=== PATIENT | male | born 1950 | race Caucasian/White ===

== ENCOUNTER 2016-07-15 09:39 | Inpatient (IN) | payer OTHER ==
[2016-07-14 14:19] VITALS: BMI 27.5
[~2016-07-15] VITALS: Ht 165.1 cm; Wt 69.1 kg
[2016-07-15] VITALS (22 sets, daily range): BP systolic 107–173; BP diastolic 54–86; PULSE 68–104; RESP 9–23; Ht 165.1 cm; Wt 69.1 kg
[~2016-07-15 09:39] MED LIST: AMO500 PO; CIPR500T4 PO; IBUP-1542 PO; NYST15CR28 TOP; PHEN-538 PO; PHEN-616 PO
[2016-07-15] MEDS ORDERED: CEFTRIAXONE 1 GM/NS 50 ML IVPB ONE (10:30)
--- NOTE | 2016-07-15 11:54 | HPN ---
Date/Time of Note Date/Time of Note DATE: 07/15/16 TIME: 11:50 Interval H&P Admission Note Pt. seen H&P reviewed: No system changes MEGAN YOUNGER MD Jul 15, 2016 11:54
[2016-07-15] MEDS ORDERED: MIDAZOLAM 1 MG/ML 2 ML INJ ONE (12:24)
[2016-07-15] MEDS ORDERED: PROPOFOL 20 ML ONE (12:24)
[2016-07-15] MEDS ORDERED: LIDOCAINE 2% (SDV) 5 ML INJ ONE (12:24)
[2016-07-15] MEDS ORDERED: METOCLOPRAMIDE 10 MG INJ ONE (12:42)
[2016-07-15] MEDS ORDERED: FENTAnyl 50 MCG/ML VIAL ONE (12:42)
[2016-07-15] MEDS ORDERED: DEXAMETHASONE 4 MG/ML 1 ML INJ ONE (12:42)
[2016-07-15] MEDS ORDERED: ONDANSETRON 4 MG INJ ONE ×2 (12:42→15:21)
[2016-07-15] MEDS ORDERED: EPHEDrine SULFATE 50 MG/5 ML SYG ONE (12:44)
[2016-07-15] MEDS ORDERED: METHYLENE BLUE 1% 10 ML INJ ONE (13:34)
[2016-07-15] MEDS ORDERED: DEXTROSE 5%-0.45% NACL 1,000 ML IV SCH ×2 (15:10→15:13)
[2016-07-15] MEDS ORDERED: HYDROmorphONE (0.2 MG/ML) 10ML SYG IV ONE (15:21)
[2016-07-15] MEDS ORDERED: LABETALOL HCL 20MG INJ IV PRN (15:30)
[2016-07-15] MEDS ORDERED: PROCHLORPERAZINE 10 MG INJ IV PRN (15:30)
[2016-07-15] MEDS ORDERED: FENTAnyl 50 MCG/ML VIAL IV PRN (15:30)
[2016-07-15] MEDS ORDERED: hydrALAzine 20 MG INJ IV PRN (15:30)
[2016-07-15] MEDS ORDERED: HYDROmorphONE (0.2 MG/ML) 10ML SYG IV PRN (15:30)
[2016-07-15] MEDS ORDERED: OXYCODONE/ACETAMINOPHEN (5/325) TAB PO PRN (15:30)
[2016-07-15] MEDS ORDERED: MEPERIDINE 25 MG INJ IV PRN (15:30)
[2016-07-15] MEDS ORDERED: DIPHENHYDRAMINE 50 MG INJ IV PRN (15:30)
[2016-07-15] MEDS ORDERED: ONDANSETRON 4 MG INJ IV PRN ×2 (15:30→17:00)
--- NOTE | 2016-07-15 15:42 | OPR ---
DATE OF OPERATION: 07/15/2016 PREOPERATIVE DIAGNOSIS: Benign prostatic hypertrophy and urethral stricture. POSTOPERATIVE DIAGNOSIS: Benign prostatic hypertrophy and urethral stricture. PROCEDURE PERFORMED: Cystoscopy, internal urethrotomy under direct vision and transurethral resecti on of the prostate. SURGEON: Rohan Euceda MD TECHNIQUE: The patient was brought to the operating room. General anesthesia was induced. The pat ient was positioned in the lithotomy position. The genital area was prepped and draped in the usual sterile manner. Timeout was done. The patient was identified by his name, date, and the pro cedure. The patient received 1 gram of ceftriaxone IV at the start of the procedure. Once the arnol tai area was prepped and draped in the usual sterile manner, then the visual urethrotome was passed under direct vision into the urethra. The urethral stricture was cut at the 12 o'clock position and advanced the scope until I was able to get into the bladder. The prostate was very large and obstr ucting mostly at the apical tissue and there were adhesions between the 2 lobes of the prostate at t he apical area. The bladder itself was trabeculated, but there was no evidence of bladder tumor, ul cerations or stones. Once the cystoscopy was done, then I pulled out the visual urethrotome and then I did a regular cyst oscopy with a 21-Citizen Of [place] cystoscope sheath and the 30-degree lens to confirm the findings with the 30 -degree lens. Then, I did use the bipolar resectoscope and introduced it under direct vision, a #26 Citizen [place] was advanced under direct vision through the penile urethra all the way into the bladder. O nce in the bladder, then the ureteral orifices were identified and then the resection was started wi th the bipolar resectoscope. First, I resected the median area between the 5 and 7 o'clock position , then between 5 and 12 o'clock position and then between the 7 and 12 o'clock position. All the ap ical tissue had to be resected well. There was a lot of apical tissue. Once that was removed, hemo stasis was done and all the bleeders were electrocoagulated and good hemostasis was obtained. The u reteral orifices were intact as well as the external sphincter. Then, I removed the resectoscope and I tried a 24-Citizen Of [place] catheter, but that was a little tight, so I decided to go with a 22-Citizen [place]. I lubricated the urethra with 60 mL of K-Y jelly and then inserted the catheter and that went into the bladder without a problem. The balloon was inflated with 60 mL of sterile water. Then, I added another 30 mL at the end. I wanted to put some gentle traction on it. The catheter was irrigated and the return was clear at the end. The [place] catheter was connec geovani to a drainage bag and continuous bladder irrigation was started in the operating room. The willard ent was transferred to recovery room in stable and satisfactory condition. Estimated blood loss abo ut 400 mL. Dictated By: ROHAN PATRICIA/CARLIN Conf#: [id number] DID#: [id number]
[2016-07-15] MEDS ORDERED: HYDROmorphONE 1 MG/ML SYG IV PRN (17:00)
[2016-07-15] MEDS ORDERED: ZOLPIDEM 5 MG TAB PO PRN (17:00)
[2016-07-15] MEDS ORDERED: NACL 0.9% 3 ML SYG IV SCH (17:00)
[2016-07-15] MEDS ORDERED: HYDROCODONE/APAP (5/325) TAB PO PRN (17:00)
--- NOTE | 2016-07-15 17:36 | HP ---
DATE OF ADMISSION: 07/15/2016 CHIEF COMPLAINT: Urethral stricture. HISTORY OF PRESENT ILLNESS: The patient is a 65-year-old male with a history of BPH. The patient i s now status post cystoscopy with TURP. The patient is being admitted for irrigation and control af ter TURP surgery. The patient denies any medical history besides BPH, states that his pain is curre ntly controlled and he has no other complaints. PAST MEDICAL HISTORY: BPH post-TURP postop day 0. He also states that he has had another prostate surgery in the past. HOME MEDICATIONS: Denies except for prostate medications. ALLERGIES: NO KNOWN DRUG ALLERGIES. FAMILY HISTORY: Denies. SOCIAL HISTORY: Denies any alcohol, tobacco, or drug abuse. REVIEW OF SYSTEMS: A 12-point review of systems is negative except as in HPI. PHYSICAL EXAMINATION: VITAL SIGNS: Temperature is 97.6, pulse 95, respiratory rate 18, BP is 129/58, saturation 97% on 2 liters. GENERAL: No acute distress, alert and oriented. HEENT: Normocephalic, atraumatic. LUNGS: Clear to auscultation. CARDIOVASCULAR: Regular rate and rhythm. ABDOMEN: Nondistended, nontender, soft. EXTREMITIES: No clubbing, cyanosis, or edema. GENITOURINARY: [place] noted. LABORATORIES:: No labs are available at this time. DIAGNOSTICS: No diagnostics available at this time. ASSESSMENT AND PLAN: 1. Benign prostatic hypertrophy, status post transurethral resection of the prostate, postop day # 0. Management per urology, Dr. Euceda. Continue bladder irrigation at this time. Continue pain c ontrol. 2. Prophylaxis: Sequential compression devices. Dictated By: MJ GRIJALVA MD BS/NTS Conf#: [id number] DID#: [id number]
[2016-07-15] MEDS: CIPROFLOXACIN 500 MG TAB PO SCH (18:13)
[2016-07-15] MEDS: morphine 2 MG INJ IV PRN ×2 (18:42→23:24)
[2016-07-16 06:16] LABS: ADD SCAN DIFF NO
[2016-07-16 06:33] LABS: ABNORMAL IP MESSAGE 1; BASOPHILS % 0.2 % (0.0-2.0); EOSINOPHILS # 0.2 10^3/ul (0.0-0.5); EOSINOPHILS % 1.3 % (0.0-7.0); HEMATOCRIT 37.5 % (42.0-52.0); HEMOGLOBIN 12.3 g/dl (14.0-18.0); LYMPHOCYTES # 0.3 10^3/ul (0.8-2.9); LYMPHOCYTES % 2.8 % (15.0-51.0); MEAN CORPUSCULAR HEMOGLOBIN 27.3 pg (29.0-33.0); MEAN CORPUSCULAR HGB CONC 32.8 g/dl (32.0-37.0); MEAN CORPUSCULAR VOLUME 83.3 fl (82.0-101.0); MEAN PLATELET VOLUME 14.1 fl (7.4-10.4); MONOCYTE # 0.5 10^3/ul (0.3-0.9); NEUTROPHIL # 11.2 10^3/ul (1.6-7.5); NEUTROPHILS % 91.1 % (39.0-77.0); PLATELET COUNT 109 10^3/UL (140-415); RED CELL DISTRIBUTION WIDTH 13.8 % (11.5-14.5); WHITE BLOOD COUNT 12.3 10^3/ul (4.8-10.8)
[2016-07-16] MEDS: CIPROFLOXACIN 500 MG TAB PO SCH ×2 (06:51→17:15)
[2016-07-16 06:56] LABS: CHOL/HDL RATIO 3.6 RATIO; MAGNESIUM 1.6 mg/dl (1.7-2.5)
[2016-07-16 07:57] VITALS: BP 106/56; RESP 16
--- NOTE | 2016-07-16 08:41 | PN ---
DATE: 07/16/2016 SUBJECTIVE: The patient is post-transurethral resection of the prostate. He complains of nausea and mild pain. OBJECTIVE: VITAL SIGNS: His temperature is 97.5, pulse 97, respirations 18, blood pressure 117/62. ABDOMEN: Soft. The [place] catheter is draining clear urine with bladder irrigation, and there is no bleeding around it. LABORATORY DATA: His CBC shows a white count of 12.3, hemoglobin 12.3, hematocrit 37.5. PLAN: Stop the bladder irrigation and change his IV to a Hep-Lock and have him ambulate and drink a lot of water. Then if he is stable, he may go home tomorrow. Dictated By: MEGAN PATRICIA/CARLIN Conf#: [id number] DID#: [id number]
[2016-07-16] MEDS: morphine 2 MG INJ IV PRN (09:10)
[2016-07-16] MEDS: ACETAMINOPHEN 325 MG TAB PO PRN ×2 (14:14→21:14)
--- NOTE | 2016-07-16 16:13 | PN ---
Date/Time of Note Date/Time of Note DATE: 07/16/16 TIME: 16:12 Assessment/Plan VTE Prophylaxis VTE Prophylaxis Intervention: SCD's Lines/Catheters IV Catheter Type (from Nrsg): Peripheral IV Assessment/Plan Chief Complaint/Hosp Course 1. Benign prostatic hypertrophy, status post transurethral resection of the prostate, postop day #1 -pain control -Management per urology, Dr. Euceda 2. Prophylaxis: Sequential compression devices. Problems: Subjective 24 Hr Interval Summary Constitutional: no complaints Exam/Review of Systems Vital Signs Vitals Vital Signs Date Time Temp Pulse Resp B/P Pulse Ox O2 Delivery O2 Flow Rate FiO2 07/16/16 08:00 Nasal Cannula 2.0 07/16/16 07:57 98.4 89 16 106/56 95 Intake and Output 07/15/16 07/15/16 07/16/16 15:00 23:00 07:00 Intake Total 1400 ml 550 ml Output Total 9250 ml Balance -7850 ml 550 ml Exam Constitutional: alert, oriented Respiratory: clear to auscultation Cardiovascular: regular rate and rhythm Gastrointestinal: soft, No distended Musculoskeletal: nl extremities to inspection Results Result Diagram: 07/16/16 0545 Results 24 hrs Laboratory Tests Test 07/16/16 05:45 White Blood Count 12.3 H Red Blood Count 4.50 L Hemoglobin 12.3 L Hematocrit 37.5 L Mean Corpuscular Volume 83.3 Mean Corpuscular Hemoglobin 27.3 L Mean Corpuscular Hemoglobin Concent 32.8 Red Cell Distribution Width 13.8 Platelet Count 109 L Mean Platelet Volume 14.1 H Neutrophils % 91.1 H Lymphocytes % 2.8 L Monocytes % 4.0 Eosinophils % 1.3 Basophils % 0.2 Nucleated Red Blood Cells % 0.0 Neutrophils # 11.2 H Lymphocytes # 0.3 L Monocytes # 0.5 Eosinophils # 0.2 Basophils # 0.0 Nucleated Red Blood Cells # 0.0 Hemoglobin A1c 6.0 H Phosphorus Level 4.0 Magnesium Level 1.6 L Triglycerides Level 115 Cholesterol Level 129 LDL Cholesterol, Calculated 71 HDL Cholesterol 35 Cholesterol/HDL Ratio 3.6 Medications Medications Current Medications Ciprofloxacin (Cipro) 500 mg BID@06,18 PO Last administered on 07/16/16t 06:51 ; Admin Dose 500 MG; Start 07/15/16 at 18:00 Ondansetron HCl (Zofran Inj) 4 mg Q6H PRN IV NAUSEA AND/OR VOMITING Last administered on 07/16/16 09:10; Admin Dose 4 MG; Start 07/15/16 at 17:00 Acetaminophen (Tylenol Tab) 650 mg Q6H PRN PO PAIN LEVEL 1-3 OR FEVER Last administered on 07/16/16 14:14; Admin Dose 650 MG; Start 07/15/16 at 17:00 Acetaminophen/ Hydrocodone Bitart ([place] (5/325)) 1 tab Q6H PRN PO MODERATE PAIN LEVEL 4-6; Start 07/15/16 at 17:00 Morphine Sulfate (morphine) 2 mg Q4H PRN IV SEVERE PAIN LEVEL 7-10 Last administered on 07/16/16 09:10; Admin Dose 2 MG; Start 07/15/16 at 17:00 Docusate Sodium (Colace) 100 mg Q12H PRN PO CONSTIPATION; Start 07/15/16 at 17: 00 Zolpidem Tartrate (Ambien) 5 mg QHS PRN PO SLEEP; Start 07/15/16 at 17:00 Hydromorphone HCl (Dilaudid) 0.5 mg Q4H PRN IV BREAKTHROUGH PAIN; Start at 17:00 MJ GRIJALVA Jul 16, 2016 16:13
[2016-07-16] MEDS: DOCUSATE SODIUM 100 MG CAP PO PRN (17:15)
[2016-07-16] MEDS ORDERED: MAGNESIUM SULFATE 2 GM/50 ML 50 ML IVPB ONE (17:30)
[2016-07-16 18:00] LABS: POTASSIUM 3.8 mmol/L (3.5-5.1)
[2016-07-16 18:03] LABS: CALCIUM 8.2 mg/dl (8.4-10.2); CREATININE 0.86 mg/dl (0.61-1.24)
[2016-07-16 19:34] VITALS: BP 116/58; RESP 18
[2016-07-17 05:19] LABS: ADD SCAN DIFF NO
[2016-07-17 05:23] LABS: ABNORMAL IP MESSAGE 1; BASOPHILS % 0.1 % (0.0-2.0); EOSINOPHILS # 0.5 10^3/ul (0.0-0.5); EOSINOPHILS % 4.7 % (0.0-7.0); HEMATOCRIT 35.9 % (42.0-52.0); HEMOGLOBIN 11.7 g/dl (14.0-18.0); LYMPHOCYTES # 0.6 10^3/ul (0.8-2.9); LYMPHOCYTES % 6.3 % (15.0-51.0); MEAN CORPUSCULAR HGB CONC 32.6 g/dl (32.0-37.0); MEAN CORPUSCULAR VOLUME 82.9 fl (82.0-101.0); MEAN PLATELET VOLUME 13.8 fl (7.4-10.4); MONOCYTE # 0.6 10^3/ul (0.3-0.9); MONOCYTES % 6.8 % (0.0-11.0); NEUTROPHIL # 7.7 10^3/ul (1.6-7.5); NEUTROPHILS % 81.4 % (39.0-77.0); PLATELET COUNT 98 10^3/UL (140-415); RED BLOOD COUNT 4.33 10^6/ul (4.70-6.10); RED CELL DISTRIBUTION WIDTH 14.2 % (11.5-14.5); WHITE BLOOD COUNT 9.5 10^3/ul (4.8-10.8)
[2016-07-17 05:32] LABS: POTASSIUM 3.8 mmol/L (3.5-5.1)
[2016-07-17 05:34] LABS: CREATININE 0.9 mg/dl (0.61-1.24)
[2016-07-17 05:35] LABS: CALCIUM 8.4 mg/dl (8.4-10.2)
[2016-07-17] MEDS: CIPROFLOXACIN 500 MG TAB PO SCH (05:49)
[2016-07-17] MEDS: DOCUSATE SODIUM 100 MG CAP PO PRN (05:49)
[2016-07-17 07:38] VITALS: BP 108/59; RESP 20
--- NOTE | 2016-07-17 10:02 | PDOCDIS ---
Discharge Instructions CONDITION Patient Condition: Good HOME CARE INSTRUCTIONS: Diet Instructions: Regular ACTIVITY: Activity Restrictions: No Restrictions FOLLOW UP/APPOINTMENTS Appointments F/U WITH DR YOUNGER INSTRUCTED MJ GRIJALVA Jul 17, 2016 10:01
--- NOTE | 2016-07-17 15:55 | DS ---
DATE OF ADMISSION: 07/15/2016 DATE OF DISCHARGE: 07/17/2016 FINAL DIAGNOSES: Benign prostatic hypertrophy, status post transurethral resection of prostate. HOSPITAL COURSE: The patient is a 65-year-old male with no medical history except for BPH. The pat ient came in for a cystoscopy and transurethral resection of the prostate. The patient had bladder irrigation and the patient's A1c was checked and was 6.0. LDL was within normal limits. The patien t was ultimately cleared for discharge, pain was controlled. Dr. Euceda recommended that the patie nt could be discharged home. On the day of discharge, patient's vitals, labs, physical exam were st able. He had no acute complaints. Questions were answered. CONDITION ON DISCHARGE: Stable. DISPOSITION: To home. MEDICATIONS: Continue home medications. New medications prescribed. FOLLOWUP: The patient is to follow up with Dr. Euceda as instructed and to follow up with his PCP. Greater than 30 minutes was spent coordinating discharge of the patient. Dictated By: MJ GRIJALVA MD BS/NTS Conf#: [id number] DID#: [id number]
== END 2016-07-17 12:05 | disposition home or self-care (01) | DRG 710 ==
LOC: REC 09:39 → MS2 16:25
PROVIDERS: ADMIT Urology; ATTEND Urology
PROC: 0TND8ZZ Release Urethra, Via Natural or Artificial Opening Endoscopic (ICD-10-PCS; 2016-07-15)
PROC: 0VT08ZZ Resection of Prostate, Via Natural or Artificial Opening Endoscopic (ICD-10-PCS; principal; 2016-07-15 12:30)
DX: N40.1 Benign prostatic hyperplasia with lower urinary tract symptoms (principal); N35.8 Other urethral stricture
CPT/HCPCS: 80048; 80061; 83036; 83735; 84100; 85025; 88305; J0360; J0696; J1100; J1170; J2250; J2270; J2405; J2765; J3010; J3475; J7042

== ENCOUNTER 2016-12-16 17:43 | Emergency (ER) | payer MEDICARE, OTHER ==
[~2016-12-16] VITALS: Ht 172.7 cm; Wt 72.0 kg
[2016-12-16 17:54] VITALS: Ht 172.7 cm; Wt 72.0 kg
--- NOTE | 2016-12-16 20:51 | RADRPT ---
PROCEDURE: Left hand series CLINICAL INDICATION: Pain status post trauma TECHNIQUE: AP lateral and oblique views COMPARISON: None available FINDINGS: The mineralization is normal. No acute fractures or dislocations are present. Moderate joint space n arrowing is present of the third metacarpal phalangeal joint and mild joint space narrowing of the s econd metacarpal phalangeal joint. The soft tissues are normal . IMPRESSION: 1. No acute fractures or traumatic subluxations or dislocations. 2. Moderate joint space narrowing of the third metacarpal phalangeal joint and mild of the second m etacarpal phalangeal joint. RPTAT: HDC .Emmy Esposito MD, Date Time Electronically viewed and signed by .Emmy Esposito MD, on 12/16/2016 20:50 .C/
[2016-12-16] MEDS ORDERED: ACETAMINOPHEN 325 MG TAB PO ONE (21:00)
[2016-12-16] MEDS ORDERED: IBUP-1542 PO (21:20)
[2016-12-16] MEDS ORDERED: TRAM50TA2 PO (21:20)
--- NOTE | 2016-12-16 21:26 | ERD ---
ER Documentation Chief Complaint Date/Time DATE: 12/16/16 TIME: 21:22 Chief Complaint left hand pain s/p grandson stepped on it HPI 66-year-old male complains of left hand pain after playing with his grandson and following some time. The pain is at the left third metacarpophalangeal joint with some swelling. Denies bleeding, denies weakness but has restricted range of motion due to pain ROS All systems reviewed and are negative except as per history of present illness. Medications Home Meds Active Scripts Ibuprofen* (Motrin*) 600 Mg Tab, 600 MG PO Q6, #15 TAB Prov:SHAVONNE ROBERTSON MD 12/16/16 Tramadol HCl (Tramadol HCl) 50 Mg Tablet, 50 MG PO Q4 Y for PAIN, #15 TAB Prov:SHAVONNE ROBERTSON MD 12/16/16 Allergies Allergies: Coded Allergies: No Known Drug Allergies (Verified Allergy, Unknown, 07/15/16) PMhx/Soc History of Surgery: Yes (PROSTATECTOMY) Anesthesia Reaction: No Hx Neurological Disorder: No Hx Respiratory Disorders: No Hx Cardiac Disorders: No Hx Psychiatric Problems: No Hx Miscellaneous Medical Probl: No Hx Alcohol Use: No Hx Substance Use: No Hx Tobacco Use: No Smoking Status: Never smoker Physical Exam Vitals Vital Signs Date Time Temp Pulse Resp B/P Pulse Ox O2 Delivery O2 Flow Rate FiO2 12/16/16 17:54 98.3 66 18 133/69 98 Physical Exam Const: [], [id number]. Head: Atraumatic Eyes: Normal Conjunctiva ENT: Normal External Ears, Nose and Mouth. Neck: Full range of motion..~ No meningismus. Resp: Clear to auscultation bilaterally Cardio: Regular rate and rhythm, no murmurs Abd: Soft, non tender, non distended. Normal bowel sounds Skin: No petechiae or rashes Back: No midline or flank tenderness Ext: No cyanosis, or edema or tenderness and swelling without erythema, bleeding, deformities of the left third metacarpophalangeal joint area. Bleeding or lacerations. Neur: Awake and alert Psych: Normal Mood and Affect Results 24 hrs Current Medications Medications (Trade) Dose Ordered Sig/Chandni Route PRN Reason Start Time Stop Time Status Last Admin Dose Admin Acetaminophen (Tylenol Tab) 650 mg ONCE ONCE PO 12/16/16 21:00 12/16/16 21:05 DC Procedures/MDM X-ray Hand 3V interpreted by me: Scaphoid: [Normal] Bones: [No fracture] Joints: [No dislocation] Foreign body: [None] identified. There is some joint space narrowing and slighT subluxation l of the left third metacarpophalangeal joint. Patient presents with left hand injury with signs of subluxation without evidence of fracture or dislocation. He was placed in the left third digit metal splint and was neurovascular intact after the splint. She will be discharged home with tramadol and ibuprofen and primary care and orthopedic follow-up. Since of septic arthritis, ischemia. There is no evidence of deficits. The patient was stable with no new complaints during the ER course. Clinically, there is no current evidence to suggest meningitis, sepsis, acute abdomen, pneumonia, acute coronary syndrome, pulmonary embolism, or any other emergent condition appearing to require further evaluation or hospitalization. The patient should certainly return for any new or worsening symptoms per the aftercare instructions. They should otherwise follow-up with her primary care doctor for reevaluation this week. Departure Diagnosis: Primary Impression: Injury of hand Encounter type: initial encounter Laterality: left Qualified Code: S69.92XA - Injury of left hand, initial encounter Condition: Stable Patient Instructions: Sprain Hand Referrals: [facility] MD Additional Instructions: X RAY NO MC FRACTURA. Va al fournier doctor/ specialista para mas evaluacon en el proximo semana. posiblemente necesita autorizado de fournier doctor primario para specialista. Regresa para fiebre, o mas o nueva simptomas. SHAVONNE ROBERTSON MD Dec 16, 2016 21:25
== END 2016-12-16 21:37 | disposition home or self-care (01) ==
LOC: FTE 17:43
DX: S69.92XA Unspecified injury of left wrist, hand and finger(s), initial encounter (principal); W50.0XXA Accidental hit or strike by another person, initial encounter; Y92.9 Unspecified place or not applicable

== ENCOUNTER 2017-08-10 13:01 | Emergency (ER) | END 2017-08-10 14:51 | disposition home or self-care (01) ==

== ENCOUNTER 2018-04-01 13:37 | Emergency (ER) | payer MEDICARE, OTHER ==
[~2018-04-01] VITALS: Wt 79.0 kg
[~2018-04-01 13:37] MED LIST changes: -AMO500 PO; -CIPR500T4 PO; +NAPR-985 PO; -NYST15CR28 TOP; -PHEN-538 PO; -PHEN-616 PO; +TRAM50TA2 PO
[2018-04-01 13:41] VITALS: BP 112/78; PULSE 78; RESP 18
[2018-04-01] MEDS ORDERED: KETOROLAC 30 MG INJ IM STA (15:19)
[2018-04-01] MEDS ORDERED: IBUP-1542 PO (16:08)
--- NOTE | 2018-04-01 16:11 | ERD ---
ER Documentation Chief Complaint Chief Complaint R KNEE PAIN AFTER FALL HPI 67-year-old male presents with left knee pain after running this week. He has pain in the lateral aspect of the left knee joint. Denies any fall, restricted range of motion, weakness, Swelling, redness or fevers. ROS All systems reviewed and are negative except as per history of present illness. Medications Home Meds Active Scripts Ibuprofen* (Motrin*) 600 Mg Tab, 600 MG PO Q6, #30 TAB Prov:SHAVONNE ROBERTSON MD 04/01/18 Naproxen* (Naprosyn*) 500 Mg Tablet, 500 MG PO BID PRN for PAIN AND/OR INFLAMMATION, #30 TAB Prov:JACQUELIN MCELROY PA-C 08/10/17 Ibuprofen* (Motrin*) 600 Mg Tab, 600 MG PO Q6, #15 TAB Prov:SHAVONNE ROBERTSON MD 12/16/16 Tramadol HCl (Tramadol HCl) 50 Mg Tablet, 50 MG PO Q4 PRN for PAIN, #15 TAB Prov:SHAVONNE ROBERTSON MD 12/16/16 Allergies Allergies: Coded Allergies: No Known Drug Allergies (Verified Allergy, Unknown, 07/15/16) PMhx/Soc History of Surgery: Yes (PROSTATECTOMY) Anesthesia Reaction: No Hx Neurological Disorder: No Hx Respiratory Disorders: No Hx Cardiac Disorders: No Hx Psychiatric Problems: No Hx Miscellaneous Medical Probl: No Hx Alcohol Use: No Hx Substance Use: No Hx Tobacco Use: No Smoking Status: Never smoker FmHx Family History: No diabetes, No coronary disease, No other Physical Exam Vitals Vital Signs Date Temp Pulse Resp B/P (MAP) Pulse Ox O2 O2 Flow FiO2 Time Delivery Rate 04/01/18 98.1 78 18 112/78 99 13:41 (89) Physical Exam Const: No acute distress Head: Atraumatic Eyes: Normal Conjunctiva ENT: Normal External Ears, Nose and Mouth. Neck: Full range of motion. No meningismus. Resp: Clear to auscultation bilaterally Cardio: Regular rate and rhythm, no murmurs Abd: Soft, non tender, non distended. Normal bowel sounds Skin: No petechiae or rashes Back: No midline or flank tenderness Ext: No cyanosis, or edema. Tenderness on the lateral lower aspect of the left knee in the proximal fibula or lateral knee joint area. No warmth, erythema, effusion. No calf swelling or Homans sign. No restricted range of motion or deficits. Neur: Awake and alert Psych: Normal Mood and Affect Results 24 hrs Current Medications Medications Dose Sig/Chandni Start Time Status Last (Trade) Ordered Route PRN Stop Time Admin Dose Reason Admin Ketorolac 30 mg ONCE STAT 04/01/18 DC 04/01/18 Tromethamine IM 15:19 15:50 (Toradol) 04/01/18 15:21 Procedures/MDM X-ray left knee 3V Interpreted by me: Bones: No fracture Joints: No dislocation Foreign body: None impression-tricompartmental degenerative changes left knee. She was given Toradol for pain. Patient presents in a neoprene knee sleeve. He was advised to use Aleve, apply ice, and will prescribe ibuprofen for pain. He is advised to see orthopedist and primary doctor for further evaluation for persistent pain. There is no evidence of septic arthritis, signs of fracture, dislocation, ischemia, infection or deficits. The patient was stable with no new complaints during the ER course. Clinically, there is no current evidence to suggest meningitis, sepsis, acute abdomen, pneumonia, stroke, acute coronary syndrome, pulmonary embolism, aortic dissection or any other emergent condition appearing to require further evaluation or hospitalization. Patient counseled regarding my diagnostic impression and care plan. Prior to discharge all questions answered. Pt agrees with treatment plan and understands strict return precautions. Pt is instructed to follow up with primary care provider within 24- 48 hours. Precautionary instructions provided including instructions to return to the ER if not improving or for any worsening or changing symptoms or concerns. Departure Diagnosis: Primary Impression: Knee pain Chronicity: acute Laterality: left Qualified Codes: M25.562 - Pain in left knee Condition: Stable Patient Instructions: Knee Pain, Uncertain Cause, Osteoarthritis Referrals: DOCTOR,NOT ON STAFF (PCP) [facility] Usted se dill hecho un examen mdico de control que le indica que no est en malini condicin que requiera tratamiento urgente en el Departamento de Emergencia. Un estudio ms profundo y el tratamiento de fournier condicin pueden esperar sin ningn riesgo hasta que usted sea atendida/o en el consultorio de fournier mdico o malini clnica. Es responsabilidad suya arreglar malini helen para el seguimiento del rhiannon. MANEJO DE CONDICIONES NO URGENTES EN EL FUTURO 1) Si usted tiene un mdico de atencin primaria: Usted debera llamar a fournier mdico de atencin primaria antes de venir al departamento de emergencia. Despus de las horas de consultorio, fournier doctor o fournier asociado/a est disponible por telfono. El mdico o enfermero de nely en el servicio telefnico puede asesorarle por liu medio para atender el problema, o rhiannon contrario se puede programar malini helen. 2) Si usted no tiene un mdico de atencin primaria: Llame al mdico o clnica de referencia que aparece abajo elise las horas de consultorio para hacer malini helen para que le vean. CLINICAS: [facility] [phone] [facility] [phone] [facility] [phone] [facility] [phone] [place] [id number] [phone] [place] [phone] Additional Instructions: X-ray shows arthritis. Apply ice at home. Recheck for redness, fevers, new worsening symptoms. See orthopedist and primary doctor for persistent pain next week. SHAVONNE ROBERTSON MD Apr 01, 2018 16:10
== END 2018-04-01 16:24 | disposition home or self-care (01) ==
LOC: FTE 13:37
DX: M25.561 Pain in right knee (principal)
CPT/HCPCS: 73562; 96372; 99284; J1885

== ENCOUNTER 2018-07-11 10:49 | Emergency (ER) | payer MEDICARE, OTHER ==
[~2018-07-11] VITALS: Ht 162.6 cm; Wt 71.4 kg
[2018-07-11 11:07] VITALS: BP 153/77; PULSE 60; RESP 18; Ht 162.6 cm; Wt 71.4 kg
--- NOTE | 2018-07-11 12:50 | ERD ---
ER Documentation Chief Complaint Chief Complaint knee pain x 4days, after playing soccer HPI 67-year-old male, presents the emergency department, complaining of acute exacerbation of chronic left knee pain after playing soccer 4 days ago. The pain is sharp, worse in the lateral aspect, 6/10. The patient denies distal weakness, numbness or tingling. The patient has been taking Tylenol with mild improvement of the symptoms. ROS All systems reviewed and are negative except as per history of present illness. Medications Home Meds Active Scripts Acetaminophen* (Tylenol*) 325 Mg Tablet, 2 TAB PO Q6 PRN for PAIN AND OR ELEVATED TEMP, #20 TAB Prov:CARMINE GIMENEZ MD 07/11/18 Prednisone* (Prednisone*) 20 Mg Tab, 40 MG PO DAILY for 4 Days, TAB Prov:CARMINE GIMENEZ MD 07/11/18 Ibuprofen* (Motrin*) 600 Mg Tab, 600 MG PO Q6, #30 TAB Prov:SHAVONNE ROBERTSON MD 04/01/18 Naproxen* (Naprosyn*) 500 Mg Tablet, 500 MG PO BID PRN for PAIN AND/OR INFLAMMA TION, #30 TAB Prov:JACQUELIN MCELROY PA-C 08/10/17 Ibuprofen* (Motrin*) 600 Mg Tab, 600 MG PO Q6, #15 TAB Prov:SHAVONNE ROBERTSON MD 12/16/16 Tramadol HCl (Tramadol HCl) 50 Mg Tablet, 50 MG PO Q4 PRN for PAIN, #15 TAB Prov:SHAVONNE ROBERTSON MD 12/16/16 Allergies Allergies: Coded Allergies: No Known Drug Allergies (Verified Allergy, Unknown, 07/15/16) PMhx/Soc History of Surgery: Yes (PROSTATECTOMY) Anesthesia Reaction: No Hx Neurological Disorder: No Hx Respiratory Disorders: No Hx Cardiac Disorders: No Hx Psychiatric Problems: No Hx Miscellaneous Medical Probl: No Hx Alcohol Use: No Hx Substance Use: No Hx Tobacco Use: No FmHx Family History: diabetes; No coronary disease Physical Exam Vitals Vital Signs Date Temp Pulse Resp B/P (MAP) Pulse Ox O2 O2 Flow FiO2 Time Delivery Rate 07/11/18 98.3 60 18 153/77 98 11:07 (102) Physical Exam Const: No acute distress Head: Atraumatic Eyes: Normal Conjunctiva ENT: Normal External Ears, Nose and Mouth. Neck: Full range of motion. No meningismus. Resp: Clear to auscultation bilaterally Cardio: Regular rate and rhythm, no murmurs Abd: Soft, non tender, non distended. Normal bowel sounds Skin: No petechiae or rashes Back: No midline or flank tenderness Ext: Left knee: Normal inspection, mild peripatellar crepitus, significant tenderness of the past anserine bursa, no effusion, no cyanosis, or edema Neur: Awake and alert Psych: Normal Mood and Affect Results 24 hrs Current Medications Medications Dose Sig/Chandni Start Time Status Last (Trade) Ordered Route PRN Stop Time Admin Dose Reason Admin Ketorolac 15 mg ONCE STAT 07/11/18 DC 07/11/18 Tromethamine IM 12:55 13:08 (Toradol) 07/11/18 13:01 Procedures/MDM Acute left knee pain: no red flags. Differential diagnosis include but not limited to: contusion, meniscus injury, tendon/ligament injury, arthritis; low suspicion for fracture, dislocation, septic arthritis. Neurovascular exam grossly intact. no clinical findings suggestive of acute infectious process, no acute deformity, no edema, no rashes. Physical examination and clinical presentation consistent most likely with acute on chronic left knee pain. During the ED course the patient received treatment with Toradol IM presenting overall improvement of the symptoms. Results and clinical impression discussed with the patient who agrees with management. The patient is stable to be treated outpatient and will be discharged home with recommendations for ice, rest, prednisone daily for 5 days and close monitoring. The patient was instructed to follow up with the primary care provider in the next 48h. If symptoms persist, worsen or new symptoms develop, then patient should return to the ED immediately. Instructions explained and given to patient with acknowledgment and demonstrated understanding. Disclaimer: Inadvertent spelling and grammatical errors are likely due to EHR/dictation software use and do not reflect on the overall quality of patient care. Also, please note that the electronic time recorded on this note does not necessarily reflect the actual time of the patient encounter. Departure Diagnosis: Primary Impression: Left knee pain Additional Impression: Bursitis of left knee Condition: Stable Additional Instructions: Muchas jania por [facility] para fournier servicio. Esperamos que en fournier visita a la chucho de emergencia fournier problema medico haya sido solucionado y que se sienta mucho mejor. Para estar seguros que fournier mejoria sigue en proceso, le pedimos el favor de hacer malini helen de seguimiento medico con fournier doctor primario en los proximos 2-4 [place]. Lleve con usted estos documentos y las medicinas recetadas. Si nancy sintomas empeoran, NO SE ESPERE, por favor regrese a chucho de emergencia INMEDIATAMENTE. En rhiannon que usted no tenga un mdico de atencin primaria: Llame al mdico o clnica comunitaria de referencia que aparece abajo elise las horas de consultorio para hacer malini helen para que le vean. CLINICAS: [facility] [phone] [facility] [phone] [facility] [phone] [address] [facility] [facility] [phone] [facility] [phone] [address] [facility] [phone] CARMINE MILLER MD Jul 11, 2018 12:50
[2018-07-11] MEDS ORDERED: KETOROLAC 15 MG INJ IM STA (12:55)
[2018-07-11] MEDS ORDERED: PRED20TA PO (13:29)
[2018-07-11] MEDS ORDERED: ACET325T33 PO (13:29)
== END 2018-07-11 13:36 | disposition home or self-care (01) ==
LOC: FTE 10:49
DX: M25.562 Pain in left knee (principal); M70.52 Other bursitis of knee, left knee; Y93.59 Activity, other involving other sports and athletics played individually
CPT/HCPCS: 96372; 99284; J1885

== ENCOUNTER 2018-09-06 12:13 | Emergency (ER) | payer MEDICARE, OTHER ==
[~2018-09-06] VITALS: Ht 157.5 cm; Wt 69.6 kg
[~2018-09-06 12:13] MED LIST changes: +ACET325T33 PO; +PRED20TA PO
[2018-09-06 12:30] VITALS: BP 134/70; PULSE 94; RESP 18; Ht 157.5 cm; Wt 69.6 kg
[2018-09-06] MEDS ORDERED: KETOROLAC 60 MG INJ IM STA (13:27)
[2018-09-06] MEDS ORDERED: NAPR-985 PO (13:59)
[2018-09-06] MEDS ORDERED: DICL100G37 TOP (13:59)
--- NOTE | 2018-09-06 14:24 | ERD ---
ER Documentation Chief Complaint Chief Complaint left knee pain x1wk after playing basket ball HPI 67-year-old male presenting with pain to the left knee x1 week. Patient states he was playing taylor while in soccer with his son and a few days after he noted some intense pain with ambulation to his left knee. He denies any acute fall or injury. Denies any fevers. Denies other medical problems. NKDA. Surgical history denies. Social history denies ROS All systems reviewed and are negative except as per history of present illness. Medications Home Meds Active Scripts Diclofenac Sodium* (Voltaren* Gel) 1% -100 Gm Gel, 2 GM TOP QID, #1 TUB Prov:SONALI CARRILLO PA-C 09/06/18 Naproxen* (Naprosyn*) 500 Mg Tablet, 500 MG PO BID PRN for PAIN AND/OR INFLAMMATION, #30 TAB Prov:SONALI CARRILLO PA-C 09/06/18 Acetaminophen* (Tylenol*) 325 Mg Tablet, 2 TAB PO Q6 PRN for PAIN AND OR ELEVATED TEMP, #20 TAB Prov:CARMINE GIMENEZ MD 07/11/18 Prednisone* (Prednisone*) 20 Mg Tab, 40 MG PO DAILY for 4 Days, TAB Prov:CARMIEN GIMENEZ MD 07/11/18 Ibuprofen* (Motrin*) 600 Mg Tab, 600 MG PO Q6, #30 TAB Prov:SHAVONNE ROBERTSON MD 04/01/18 Naproxen* (Naprosyn*) 500 Mg Tablet, 500 MG PO BID PRN for PAIN AND/OR INFLAMMATION, #30 TAB Prov:JACQUELIN MCELROY PA-C 08/10/17 Ibuprofen* (Motrin*) 600 Mg Tab, 600 MG PO Q6, #15 TAB Prov:SHAVONNE ROBERTSON MD 12/16/16 Tramadol HCl (Tramadol HCl) 50 Mg Tablet, 50 MG PO Q4 PRN for PAIN, #15 TAB Prov:SHAVONNE ROBERTSON MD 12/16/16 Allergies Allergies: Coded Allergies: No Known Drug Allergies (Verified Allergy, Unknown, 09/06/18) PMhx/Soc History of Surgery: Yes (PROSTATECTOMY) Anesthesia Reaction: No Hx Neurological Disorder: No Hx Respiratory Disorders: No Hx Cardiac Disorders: No Hx Psychiatric Problems: No Hx Miscellaneous Medical Probl: No Hx Alcohol Use: No Hx Substance Use: No Hx Tobacco Use: No Smoking Status: Never smoker FmHx Family History: No diabetes, No coronary disease, No other Physical Exam Vitals Vital Signs Date Temp Pulse Resp B/P (MAP) Pulse Ox O2 O2 Flow FiO2 Time Delivery Rate 09/06/18 97.9 94 18 134/70 97 12:30 (91) Physical Exam GENERAL: The patient is well-appearing, well-nourished, in no acute distress CHEST: Clear to auscultation bilaterally. There are no rales, wheezes or rhonchi. HEART: Regular rate and rhythm. No murmurs, clicks, rubs or gallops. EXTREMITIES: Tender to palpation over the lateral aspect of the left knee with no obvious deformity. No swelling. NEUROLOGIC: Alert and oriented. Cranial nerves II through XII intact. Motor strength in all 4 extremities with 5 out of 5 strength. Sensation grossly intact. Normal speech and gait. SKIN: There is no apparent rash or petechiae. The skin is warm and dry. Results 24 hrs Current Medications Medications Dose Sig/Chandni Start Time Status Last (Trade) Ordered Route PRN Stop Time Admin Dose Reason Admin Ketorolac 60 mg ONCE STAT 09/06/18 DC 09/06/18 Tromethamine IM 13:27 13:33 (Toradol) 09/06/18 13:28 Procedures/MDM DIAGNOSTIC IMAGING REPORT Patient: NASH YANES : 1950 Age: 67 Sex: M MR #: [id number] DOS: 09/06/18 1306 Ordering MD: OLIVER CARRILLO PA-C Location: [facility] Room/Bed: PROCEDURE: XR Knee. CLINICAL INDICATION: Knee pain TECHNIQUE: Three views of the left knee are available for review. COMPARISON: DR GALVAN 04/01/2018 FINDINGS: Marginal osteophyte formation and subchondral sclerosis seen at all 3 compartments. Mild narrowing is seen at the lateral femorotibial compartment and patellofemoral compartment. Moderate narrowing is seen at the medial femorotibial compartment. No acute osseous abnormality. No definite joint effusion. IMPRESSION: 1. 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 No interval change. 2. No acute fracture or dislocation is seen. ER Course: Marty wrap given in ED MDM: 67-year-old male presenting with knee pain. I have low suspicion for acute fracture dislocation. Patient recommended follow-up with orthopedist as he would benefit from an MRI. I have low suspicion for infectious process. I have low suspicion for tendon or ligament rupture. Patient likely has arthritic changes which is causing him pain. Patient may have an underlying meniscal injury as well. Patient is told symptoms change or worsen to return the ER. I will suspicion for acute fracture dislocation. All questions answered at discharge Departure Diagnosis: Primary Impression: Arthritis Condition: Stable Patient Instructions: Osteoarthritis Referrals: [facility] YOU HAVE RECEIVED A MEDICAL SCREENING EXAM AND THE RESULTS INDICATE THAT YOU DO NOT HAVE A CONDITION THAT REQUIRES URGENT TREATMENT IN THE EMERGENCY DEPARTMENT. FURTHER EVALUATION AND TREATMENT OF YOUR CONDITION CAN WAIT UNTIL YOU ARE SEEN IN YOUR DOCTORS OFFICE WITHIN THE NEXT 1-2 DAYS. IT IS YOUR RESPONSIBILITY TO MAKE AN APPOINTMENT FOR FOLOW-UP CARE. IF YOU HAVE A PRIMARY DOCTOR --you should call your primary doctor and schedule an appointment IF YOU DO NOT HAVE A PRIMARY DOCTOR YOU CAN CALL OUR PHYSICIAN REFERRAL HOTLINE AT IF YOU CAN NOT AFFORD TO SEE A PHYSICIAN YOU CAN CHOSE FROM THE FOLLOWING [facility] [address] [facility]. [facility] [address] [facility] [facility] [address] [facility] [facility] [address] [facility]. [facility] [address] [facility] [facility]. [address] Additional Instructions: FOLLOW UP WITH YOUR PRIMARY CARE PHYSICIAN TOMORROW.Return to this facility if you are not improving as expected. SONALI CARRILLO PA-C Sep 06, 2018 14:24
== END 2018-09-06 14:12 | disposition home or self-care (01) ==
LOC: FTE 12:13
DX: M19.90 Unspecified osteoarthritis, unspecified site (principal)
CPT/HCPCS: 73562; 96372; 99284; J1885